=== PATIENT | female | born 2000 | race Caucasian/White ===

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

== ENCOUNTER 2024-06-16 16:39 | Emergency (ER) | payer OTHER ==
[2024-06-16 16:51] VITALS: RESP 18; TEMP 98.6; BMI 35.7
[2024-06-16 18:35] LABS: EPI CELLS >36 /uL (0-25.1); HYALINE CASTS 0 /uL (0-3.1); PH,URINE 8.5 (5.0-8.0); URINE APPEARANCE CLOUDY; URINE BACTERIA 318 /uL (0-1359); URINE BILIRUBIN NEGATIVE (NEGATIVE); URINE COLOR RED; URINE GLUCOSE (UA) NEGATIVE (NEGATIVE); URINE KETONE TRACE (NEGATIVE); URINE LEUK ESTERASE TRACE (NEGATIVE); URINE NITRITE NEGATIVE (NEGATIVE); URINE PROTEIN 3+ (NEGATIVE); URINE RBC 2912 /uL (0-23.9); URINE UROBILINOGEN 0.2 mg/dL (0.2-1.0); URINE WBC 36 /uL (0-25.8)
[2024-06-16 18:37] LABS: HCG,QUALITATIVE URINE Negative
[2024-06-16] MEDS: ACETAMINOPHEN 1000 MG/100 ML BAG IVPB ONE (18:45)
[2024-06-16] MEDS: SODIUM CHLORIDE 1,000 ML IV STA (18:45)
[2024-06-16 18:52] VITALS: BP 122/81; PULSE 87
== END 2024-06-16 19:02 | disposition home or self-care (01) ==
LOC: JER 16:39
DX: R10.2 Pelvic and perineal pain (principal); N94.6 Dysmenorrhea, unspecified
CPT/HCPCS: 81003; 84703; 87086; 99283-25

== ENCOUNTER 2024-10-21 18:19 | Emergency (ER) | payer OTHER ==
[2024-10-21 18:29] VITALS: BP 150/88; PULSE 107; RESP 20; TEMP 98.6; BMI 41.8
[2024-10-21 19:56] LABS: HCG,QUALITATIVE URINE Positive
[2024-10-21 19:59] LABS: EPI CELLS 5 /uL (0-25.1); HYALINE CASTS 0 /uL (0-3.1); PH,URINE 6.5 (5.0-8.0); URINE APPEARANCE CLEAR; URINE BACTERIA 74 /uL (0-1359); URINE BILIRUBIN NEGATIVE (NEGATIVE); URINE COLOR YELLOW; URINE GLUCOSE (UA) NEGATIVE (NEGATIVE); URINE KETONE NEGATIVE (NEGATIVE); URINE LEUK ESTERASE NEGATIVE (NEGATIVE); URINE NITRITE NEGATIVE (NEGATIVE); URINE PROTEIN NEGATIVE (NEGATIVE); URINE RBC 13 /uL (0-23.9); URINE UROBILINOGEN 0.2 mg/dL (0.2-1.0); URINE WBC 5 /uL (0-25.8)
[2024-10-21 20:49] LABS: ABSOLUTE IMMATURE GRANULOCYTES 0.06 x10^3/uL (0.0-0.031); BASOPHILS # 0.06 x10^3/uL (0.01-0.08); EOSINOPHIL % 1.2 % (0.7-5.8); EOSINOPHILS # 0.14 x10^3/uL (0.04-0.36); HEMATOCRIT 39.2 % (34.1-44.9); MCHC 33.2 g/dl (32.2-35.5); MEAN CELL VOLUME 84.1 fl (79.4-94.8); MEAN PLT VOLUME 9.4 fl (9.4-12.3); PLATELET COUNT 351 x10^3/uL (182-369); RDW 13.1 % (12.1-16.5)
[2024-10-21 21:57] LABS: POTASSIUM 3.9 mmol/L (3.5-5.1)
[2024-10-21 22:00] LABS: CALCIUM 9.6 mg/dL (8.5-10.1)
[2024-10-21 22:01] LABS: BLOOD UREA NITROGEN 8.2 mg/dL (7-18)
[2024-10-21 22:04] LABS: CREATININE 0.6 mg/dL (0.55-1.3)
[2024-10-21 22:05] LABS: BILIRUBIN,TOTAL 0.6 mg/dL (0.2-1); TOT PROT 7.1 g/dl (6.4-8.2)
== END 2024-10-21 22:25 | disposition home or self-care (01) ==
LOC: JER 18:19
DX: O20.9 Hemorrhage in early pregnancy, unspecified (principal); Z3A.00 Weeks of gestation of pregnancy not specified
CPT/HCPCS: 36415; 76817-TC; 80053; 81003; 84702; 84703; 85025; 86850; 86900; 86901; 87086; 99284-25